=== PATIENT | male | born 1980 | race Caucasian/White ===

== ENCOUNTER 2020-02-02 14:21 | Emergency (ER) | payer MEDICAID ==
[~2020-02-02] VITALS: Ht 162.6 cm; Wt 90.3 kg
[2020-02-02 14:28] VITALS: BP 167/95; Ht 162.6 cm; Wt 90.3 kg
== END 2020-02-02 16:41 | disposition home or self-care (01) ==
LOC: ED 14:21
DX: Z86.2 Personal history of diseases of the blood and blood-forming organs and certain disorders involving the immune mechanism (principal); S62.636B Displaced fracture of distal phalanx of right little finger, initial encounter for open fracture; W23.0XXA Caught, crushed, jammed, or pinched between moving objects, initial encounter; Y93.89 Activity, other specified; Y92.89 Other specified places as the place of occurrence of the external cause; Y99.8 Other external cause status
CPT/HCPCS: 90715; A4570; J2001

== ENCOUNTER 2020-02-04 08:46 | Emergency (ER) | payer MEDICAID ==
[~2020-02-04] VITALS: Ht 160 cm; Wt 86.6 kg
[2020-02-04 08:52] VITALS: Ht 160 cm; Wt 86.6 kg
[2020-02-04 10:39] VITALS: BP 132/89
== END 2020-02-04 10:41 | disposition home or self-care (01) ==
LOC: ED 08:46
DX: S62.637D Displaced fracture of distal phalanx of left little finger, subsequent encounter for fracture with routine healing (principal); W23.0XXD Caught, crushed, jammed, or pinched between moving objects, subsequent encounter